=== PATIENT | female | born 1965 | race Caucasian/White ===

== ENCOUNTER 2024-07-17 04:47 | Inpatient (IN) | payer OTHER ==
[~2024-07-17] VITALS: Ht 162.6 cm; Wt 76.7 kg
[2024-07-17 06:21] LABS: BASOPHILS % 0.7 % (0.0-2.0); EOSINOPHILS % 0.7 % (0.0-5.0); HEMATOCRIT. 36.1 % (36.0-48.0); HEMOGLOBIN. 12.1 g/dL (12.0-16.0); LYMPHOCYTES % 26.9 % (20.0-50.0); MEAN CORPUSCULAR HEMOGLOBIN 28.5 pg (28.0-32.0); MEAN CORPUSCULAR HGB CONC 33.4 g/dL (31.0-37.0); MEAN CORPUSCULAR VOLUME 85.3 fL (81.0-99.0); MEAN PLATELET VOLUME 7.9 fl (7.4-10.4); NEUTROPHILS % 67.7 % (40.0-76.0); PLATELET 313 x1000/uL (130-400); RED BLOOD CELL COUNT 4.23 mill/uL (4.2-5.4); RED CELL DISTRIBUTION WIDTH 16.9 % (11.6-14.6); WHITE BLOOD COUNT 7.6 x1000/uL (4.5-11.0)
[2024-07-17 06:56] LABS: CARBON DIOXIDE 24 mEq/L (21-32); CHLORIDE 103 mEq/L (98-107); POTASSIUM 3.3 mEq/L (3.5-5.1); SODIUM 140 mEq/L (136-145)
[2024-07-17 06:57] LABS: CALCIUM 10.7 mg/dL (8.7-10.4)
[2024-07-17 07:02] LABS: CREATININE 1.3 mg/dL (0.6-1.0); GLUCOSE 149 mg/dL (70-105); UREA NITROGEN BLOOD 14 mg/dL (9-23)
[2024-07-17] MEDS: MAGNESIUM 2 G PREMIX 50 ML IV ONE (07:11)
[2024-07-17 07:13] LABS: D-DIMER 0.74 mg/L FEU (<0.50); PROTHROMBIN TIME 10.9 sec (9.6-11.0)
[2024-07-17 07:32] LABS: TROPONIN I HIGH SENSITIVITY 39 ng/L (3.0-34)
[2024-07-17] MEDS ORDERED: METFORMIN HCL 500MG TABLET PO SCH (09:00)
[2024-07-17] MEDS: METOPROLOL SUCCINATE 50MG ER TABLET PO STA (10:32)
[2024-07-17] MEDS: METFORMIN HCL 500MG TABLET PO SCH (10:32)
[2024-07-17 12:00] VITALS: BP 171/89; PULSE 82; RESP 18; TEMP 36.5; O2SAT 100
[2024-07-17] MEDS ORDERED: CLONIDINE 0.1MG TABLET PO PRN (12:00)
[2024-07-17] MEDS ORDERED: ACETAMINOPHEN 325MG TABLET PO PRN (12:00)
[2024-07-17] MEDS ORDERED: GUAIFENESIN 200MG/10ML SUGAR FREE UDC PO PRN (12:00)
[2024-07-17] MEDS ORDERED: IPRATROPIUM/ALBUTEROL 0.5-3(2.5)MG/3ML NEB HHN PRN (12:00)
[2024-07-17] MEDS ORDERED: DEXTROSE 50% WATER 50ML SYRINGE IV PRN (12:00)
[2024-07-17] MEDS ORDERED: ONDANSETRON HCL 4MG/2ML INJ IV PRN (12:00)
[2024-07-17] MEDS ORDERED: MAGNESIUM/ALUMINUM HYDROXIDE/SIMETHICONE 30ML UDC PO PRN (12:00)
[2024-07-17] MEDS ORDERED: DOCUSATE SODIUM 100MG CAPSULE PO PRN (12:00)
[2024-07-17] MEDS: BLOOD SUGAR DIAGNOSTIC STRIP TEST SCH (13:00)
[2024-07-17] MEDS ORDERED: NITROGLYCERIN 0.4MG TABLET SL SL PRN (13:45)
[2024-07-17] MEDS: POTASSIUM CHLORIDE 20MEQ TABLET SR PO SCH (14:02)
[2024-07-17] MEDS: LOSARTAN 100 MG TABLET PO SCH (14:02)
[2024-07-17] MEDS: SODIUM CHLORIDE 0.9% 1,000 ML IV ONE (14:02)
[2024-07-17] MEDS: ENOXAPARIN 40MG/0.4ML SYR SUBCUT SCH (14:10)
[2024-07-17] MEDS: INSULIN LISPRO 100 UNITS/ML SUBCUT SCH (14:26)
[2024-07-17 15:29] VITALS: BP 171/89; PULSE 82; RESP 18; TEMP 36.5
[2024-07-17 16:00] VITALS: BP 159/85; PULSE 83; RESP 18; TEMP 36.8; O2SAT 99
[2024-07-17 18:36] LABS: PHOSPHORUS 3.9 mg/dL (2.5-4.9)
[2024-07-17 18:43] LABS: TROPONIN I HIGH SENSITIVITY 58 ng/L (3.0-34)
[2024-07-17] MEDS: KCL 20MEQ/100ML PREMIX 100 ML IV NR (19:21)
[2024-07-17 20:00] VITALS: BP_SYST 102; BP_SYST 168; BP_DIAS 61; BP_DIAS 85; PULSE 72; PULSE 87; RESP 20; TEMP 36.3; TEMP 36.9; O2SAT 94; O2SAT 99
[2024-07-17] MEDS: ACETAMINOPHEN 325MG TABLET PO PRN (20:24)
[2024-07-17] MEDS ORDERED: METOPROLOL TARTRATE 50MG TABLET PO SCH (21:00)
[2024-07-17] MEDS: HYDRALAZINE HCL 50MG TABLET PO SCH (21:48)
[2024-07-17] MEDS: FAMOTIDINE 20MG TABLET PO SCH (21:49)
[2024-07-17] MEDS: DILTIAZEM HCL 60MG TABLET PO SCH (21:50)
[2024-07-18] VITALS: BP 139/76; PULSE 85; RESP 20; TEMP 36.8; O2SAT 100
[2024-07-18 04:00] VITALS: PULSE 79
[2024-07-18 06:40] LABS: BASOPHILS % 0.7 % (0.0-2.0); EOSINOPHILS % 2.6 % (0.0-5.0); HEMATOCRIT. 32.9 % (36.0-48.0); HEMOGLOBIN. 11.1 g/dL (12.0-16.0); LYMPHOCYTES % 50.8 % (20.0-50.0); MEAN CORPUSCULAR HEMOGLOBIN 28.8 pg (28.0-32.0); MEAN CORPUSCULAR HGB CONC 33.6 g/dL (31.0-37.0); MEAN CORPUSCULAR VOLUME 85.8 fL (81.0-99.0); MEAN PLATELET VOLUME 8.1 fl (7.4-10.4); MONOCYTES % 7.5 % (2.0-8.0); NEUTROPHILS % 38.4 % (40.0-76.0); PLATELET 288 x1000/uL (130-400); RED BLOOD CELL COUNT 3.83 mill/uL (4.2-5.4); RED CELL DISTRIBUTION WIDTH 17.3 % (11.6-14.6); WHITE BLOOD COUNT 7.2 x1000/uL (4.5-11.0)
[2024-07-18 07:03] LABS: TROPONIN I HIGH SENSITIVITY 27 ng/L (3.0-34)
[2024-07-18 07:24] LABS: LDL CHOLESTEROL 67 mg/dL (5-100); TRIGLYCERIDE 130 mg/dL (0-150)
[2024-07-18 07:25] LABS: ALANINE AMINOTRANSFERASE 42 IU/L (10-49)
[2024-07-18 07:26] LABS: ALBUMIN 3.9 g/dL (3.2-4.8); ASPARTATE AMINOTRANSFERASE 31 IU/L (<34); BILIRUBIN DIRECT 0.1 mg/dL (<=3.0); BILIRUBIN TOTAL 0.4 mg/dL (0.1-1.0); CHOLESTEROL 128 mg/dL (<200); HDL CHOLESTEROL 42 mg/dL (>65)
[2024-07-18 07:27] LABS: CREATINE KINASE MB FRACTION < 0.5 ng/mL (0.5-3.6)
[2024-07-18 07:31] LABS: T4 FREE 1.46 ng/dL (0.89-1.76)
[2024-07-18 07:32] LABS: THYROID STIMULATING HORMONE 2.45 uIU/mL (0.55-4.78)
[2024-07-18 07:51] LABS: POTASSIUM 3.8 mEq/L (3.5-5.1)
[2024-07-18 07:53] LABS: CALCIUM 9.6 mg/dL (8.7-10.4)
[2024-07-18 07:57] LABS: CREATININE 1.2 mg/dL (0.6-1.0)
[2024-07-18 08:00] VITALS: BP 134/82; PULSE 98; RESP 20; TEMP 36.5; O2SAT 94
[2024-07-18] MEDS ORDERED: LIDOCAINE HCL 1% 10 MG/ML 10ML VIAL ONE (09:46)
[2024-07-18] MEDS ORDERED: VERAPAMIL HCL 2.5 MG/1 ML 2ML VIAL IV ONE (09:46)
[2024-07-18] MEDS ORDERED: HEPARIN 1000 UNITS/ML 10ML ONE (09:47)
[2024-07-18] MEDS ORDERED: IODIXANOL 320MG/ML 100 ML BOTTLE IV ONE (09:47)
[2024-07-18] MEDS ORDERED: FENTANYL CITRATE/PF 50MCG/ML 2ML VIAL ONE (10:43)
[2024-07-18] MEDS ORDERED: MIDAZOLAM HCL 2 MG/2 ML VIAL ONE (10:43)
[2024-07-18] MEDS ORDERED: DIPHENHYDRAMINE 50MG/ML VIAL ONE (10:43)
[2024-07-18] MEDS ORDERED: ACETAMINOPHEN 325MG TABLET PO PRN (12:30)
[2024-07-18] MEDS ORDERED: ATROPINE SULFATE 1MG/10ML SYR IV PRN (12:30)
[2024-07-18] MEDS: ASPIRIN 81MG EC TABLET PO SCH (14:30)
[2024-07-18 16:00] VITALS: BP 141/78; PULSE 96; RESP 16; TEMP 36.7; O2SAT 100
[2024-07-18 19:59] VITALS: BP 171/93
[2024-07-18 20:00] VITALS: BP 160/86; PULSE 99; RESP 18; TEMP 36.7; O2SAT 100
[2024-07-18] MEDS ORDERED: METF-414 PO (20:54)
[2024-07-18] MEDS ORDERED: LOSA-419 MT (20:54)
[2024-07-18] MEDS ORDERED: METO100T9 MT (20:54)
[2024-07-18] MEDS ORDERED: MONT-46 PO (20:54)
[2024-07-18] MEDS ORDERED: LEVO75TA7 MT (20:54)
[2024-07-18] MEDS: MONTELUKAST SODIUM 10MG TABLET PO SCH (21:54)
[2024-07-19] VITALS: BP 129/67; PULSE 84; RESP 19; TEMP 36.4; O2SAT 99
[2024-07-19 04:00] VITALS: BP 130/71; PULSE 87; RESP 18; TEMP 36.4; O2SAT 100
[2024-07-19] MEDS: LEVOTHYROXINE SODIUM 75MCG TABLET PO SCH (06:36)
[2024-07-19 08:00] VITALS: BP 131/66; PULSE 117; RESP 18; TEMP 36.5; O2SAT 97
[2024-07-19 08:11] LABS: BASOPHILS % 0.5 % (0.0-2.0); EOSINOPHILS % 2.8 % (0.0-5.0); HEMATOCRIT. 33.3 % (36.0-48.0); HEMOGLOBIN. 11.1 g/dL (12.0-16.0); LYMPHOCYTES % 40.3 % (20.0-50.0); MEAN CORPUSCULAR HEMOGLOBIN 28.7 pg (28.0-32.0); MEAN CORPUSCULAR HGB CONC 33.4 g/dL (31.0-37.0); MEAN CORPUSCULAR VOLUME 85.9 fL (81.0-99.0); MONOCYTES % 7.5 % (2.0-8.0); NEUTROPHILS % 48.9 % (40.0-76.0); PLATELET 272 x1000/uL (130-400); RED BLOOD CELL COUNT 3.88 mill/uL (4.2-5.4); WHITE BLOOD COUNT 5.4 x1000/uL (4.5-11.0)
[2024-07-19 08:18] LABS: POTASSIUM 3.7 mEq/L (3.5-5.1)
[2024-07-19 08:19] LABS: CALCIUM 9.8 mg/dL (8.7-10.4)
[2024-07-19] MEDS: METOPROLOL SUCCINATE 50MG ER TABLET PO STA (08:20)
[2024-07-19] MEDS: IOHEXOL-350 100 ML BOTTLE ONE (08:21)
[2024-07-19 08:24] LABS: CREATININE 1.2 mg/dL (0.6-1.0)
[2024-07-19] MEDS: METOPROLOL SUCCINATE 50MG ER TABLET PO SCH (11:20)
[2024-07-19 12:00] VITALS: BP 132/73; PULSE 93; RESP 16; TEMP 36.7; O2SAT 98
[2024-07-19] MEDS: SODIUM CHLORIDE 0.9% (SEPSIS BOLUS) IV ONE (13:22)
[2024-07-19] MEDS: SODIUM CHLORIDE 0.9% 500 ML IV ONE (13:22)
[2024-07-19 16:00] VITALS: BP 123/66; PULSE 90; RESP 16; TEMP 36.2; O2SAT 98
[2024-07-19 20:00] VITALS: BP 133/70; PULSE 84; RESP 18; TEMP 37.2; O2SAT 100
[2024-07-19 22:51] LABS: CALCIUM 10.5 mg/dL (8.7-10.4)
[2024-07-19 22:55] LABS: CREATININE 1.2 mg/dL (0.6-1.0)
[2024-07-20] VITALS: BP 133/76; PULSE 87; RESP 16; TEMP 36.3; O2SAT 100
[2024-07-20 04:00] VITALS: BP 117/58; PULSE 87; RESP 18; TEMP 37; O2SAT 98
[2024-07-20 08:00] VITALS: BP_SYST 133; BP_SYST 96; BP_DIAS 40; BP_DIAS 76; PULSE 88; PULSE 94; RESP 16; RESP 18; TEMP 36.7; TEMP 36.8; O2SAT 97; O2SAT 99
[2024-07-20 08:04] LABS: POTASSIUM 3.8 mEq/L (3.5-5.1)
[2024-07-20 08:05] LABS: CALCIUM 9.4 mg/dL (8.7-10.4)
[2024-07-20 08:10] LABS: CREATININE 1.2 mg/dL (0.6-1.0)
[2024-07-20 09:18] LABS: HEMATOCRIT 34.8 % (36.0-48.0); HEMOGLOBIN 11.4 g/dL (12.0-16.0); MEAN CORPUSCULAR HEMOGLOBIN 28.6 pg (28.0-32.0); MEAN CORPUSCULAR HGB CONC 32.9 g/dL (31.0-37.0); MEAN CORPUSCULAR VOLUME 86.9 fL (81.0-99.0); PLATELET 291 x1000/uL (130-400); RED CELL DISTRIBUTION WIDTH 16.8 % (11.6-14.6); WHITE BLOOD COUNT 6.3 x1000/uL (4.5-11.0)
[2024-07-20 12:00] VITALS: BP 127/76; PULSE 90; RESP 16; TEMP 36.6; O2SAT 98
[2024-07-20] MEDS ORDERED: LOSA100T33 MT (13:05)
[2024-07-20] MEDS ORDERED: ASPI-1497 MT (13:05)
[2024-07-20] MEDS ORDERED: METO-411 MT (13:05)
[2024-07-20] MEDS ORDERED: HYDR50TA40 MT (13:05)
[2024-07-20 13:43] VITALS: BP 127/76; PULSE 90; TEMP 97.9; O2SAT 98
== END 2024-07-20 13:35 | disposition home or self-care (01) | DRG 281 ==
LOC: ER 04:47 → 5WST 10:08
PROVIDERS: ADMIT Internal Medicine; ATTEND Internal Medicine
PROC: 4A023N7 Measurement of Cardiac Sampling and Pressure, Left Heart, Percutaneous Approach (ICD-10-PCS; principal; 2024-07-18)
PROC: B211YZZ Fluoroscopy of Multiple Coronary Arteries using Other Contrast (ICD-10-PCS; 2024-07-18)
DX: I25.10 Atherosclerotic heart disease of native coronary artery without angina pectoris (principal); N17.9 Acute kidney failure, unspecified; I21.A1 Myocardial infarction type 2; R57.9 Shock, unspecified; I10 Essential (primary) hypertension; I48.0 Paroxysmal atrial fibrillation; E87.6 Hypokalemia; R00.0 Tachycardia, unspecified; E11.65 Type 2 diabetes mellitus with hyperglycemia; E03.9 Hypothyroidism, unspecified; J45.909 Unspecified asthma, uncomplicated; Z79.4 Long term (current) use of insulin; Z88.0 Allergy status to penicillin; Z79.82 Long term (current) use of aspirin; Z79.84 Long term (current) use of oral hypoglycemic drugs; Z79.899 Other long term (current) drug therapy; Z82.41 Family history of sudden cardiac death; Z82.49 Family history of ischemic heart disease and other diseases of the circulatory system
CPT/HCPCS: 36415; 71045; 71275; 80048; 80061; 80076; 82553; 82962; 83036; 83735; 83880; 84100; 84439; 84443; 84484; 85025; 85027; 85379; 93005; 93306; 93458; 93970; 99285; A4606; A4663; C1769; C1887; C1893; J1200; J1644; J1650; J1815; J2003; J2250; J3010; J3475; J3490; Q9967